=== PATIENT | female | born 1975 | race Caucasian/White ===

== ENCOUNTER 2023-08-27 16:34 | Emergency (ER) | payer SELFPAY ==
[2023-08-27 16:40] VITALS: BP 134/95; PULSE 92; RESP 20; TEMP 36.6; O2SAT 96; BMI 41.6
[2023-08-27 17:17] LABS: Influenza Virus A Antigen Negative; Influenza Virus B Antigen Negative; Internal Control Within Normal Limits; SARS-CoV-2 Ag NEGATIVE (NEGATIVE); Strep A Antigen Screen Negative
--- NOTE | 2023-08-27 17:35 | ED.URI1 ---
HPI - URI/Sore Throat General Chief Complaint: Upper Respiratory Infection Stated Complaint: Sore Throat Time Seen by Provider: 08/27/23 17:35 Limitations: no limitations History of Present Illness HPI Narrative: Patient is a 47-year-old female who presents to the emergency department to be checked for strep and COVID. 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 She was instructed to come to the emergency department to be evaluated. She has had no objective fevers, vomiting. She is not concerned for . No medications taken prior to arrival. Related Data Previous Rx's ?Medication ?Instructions ?Recorded ctsmkatbklfveju-kbxegogdciuiepq-TI 10 ml PO Q6H PRN cold symptoms 08/27/23 2 mg-30 mg-10 mg/5 mL oral syrup #200 mL (Bromfed DM) Allergies Allergy/AdvReac Type Severity Reaction Status Date / Time Penicillins Allergy Severe Anaphylaxis Verified 08/27/23 16:40 Review of Systems ROS Constitutional Denies: fever or chills Ears, nose, mouth, and throat Reports: throat pain and nasal congestion Respiratory Reports: cough; Denies: shortness of breath Gastrointestinal Denies: nausea or vomiting Musculoskeletal Denies: back pain Integumentary/Breast Denies: rash Neurological Denies: headache Hematologic/Lymphatic Denies: easy bruising or easy bleeding Exam Narrative Exam Narrative: Gen.: Awake, alert, in no distress Head: Normocephalic, atraumatic ENT: Moist mucous membranes, Bilateral TMs are clear, mild pharyngeal erythema noted with minimal tonsillar edema that is symmetric. No exudate. Airway widely open and patent with uvula midline. Clear speech. No trismus or drooling. Respiratory: No respiratory distress, lungs clear bilaterally Cardio: Regular rate and rhythm Extremities: Moves extremities equally Psych: Normal mood and affect Neuro: No focal neuro deficit Skin: Warm, dry, intact Constitutional Vital Signs, click to edit/add: Last Vital Signs Temp 98 F 08/27/23 16:40 Pulse 92 H 08/27/23 16:40 Resp 20 08/27/23 16:40 BP 134/95 H 08/27/23 16:40 Pulse Ox 96 08/27/23 16:40 O2 Del Method Room Air 08/27/23 16:40 Course Vital Signs Vital signs: Vital Signs Temperature 98 F 08/27/23 16:40 Pulse Rate 92 H 08/27/23 16:40 Respiratory Rate 20 08/27/23 16:40 Blood Pressure 134/95 H 08/27/23 16:40 Pulse Oximetry 96 08/27/23 16:40 Oxygen Delivery Method Room Air 08/27/23 16:40 Temperature 98 F 08/27/23 16:40 Pulse Rate 92 H 08/27/23 16:40 Respiratory Rate 20 08/27/23 16:40 Blood Pressure 134/95 H 08/27/23 16:40 Pulse Oximetry 96 08/27/23 16:40 Oxygen Delivery Method Room Air 08/27/23 16:40 MDM - URI/Sore Throat MDM Narrative Medical decision making narrative: Patient is negative for strep, flu, COVID. Decadron given in the ER and Bromfed-DM given for home. Follow-up with PCP, patient is safe for work if she does not have a temperature above 100.4 Fahrenheit. Medical Records Attestation: I reviewed the patient's medical records. Lab Data Attestation: I reviewed the patient's lab results. Labs: Lab Results 08/27/23 Range/Units 16:49 Influenza Type A Ag Negative Influenza Type B Ag Negative SARS-CoV-2 Ag (CV2AG) Negative (NEGATIVE) Streptococcus Screen Negative Discharge Plan Discharge Stand Alone Forms: Portal Instructions Chief Complaint: Upper Respiratory Infection Clinical Impression: Upper respiratory infection, Pharyngitis Patient Disposition: Home, Self-Care Time of Disposition Decision: 17:36 Condition: Good Prescriptions / Home Meds: New devrlnicagoudzm-agbgqthhb-CZ [Bromfed DM] 2-30-10 mg/5 mL syrup 10 ml PO Q6H PRN (Reason: cold symptoms) Qty: 200 0RF Print Language: Beninese Instructions: Pharyngitis (ED), Upper Respiratory Infection (ED) Referrals: Physician,Non-Staff, MD [Primary Care Provider] - 1 week
[2023-08-27] MEDS: DEXAMETHASONE SOD PHOS 10 MG/ML VIAL PO (17:46)
== END 2023-08-27 17:51 | disposition home or self-care (01) ==
PROVIDERS: Emergency Provider Emergency Medicine Emergency Medical Services
DX: J06.9 Acute upper respiratory infection, unspecified (principal); J02.9 Acute pharyngitis, unspecified; Z20.822 Contact with and (suspected) exposure to COVID-19
CPT/HCPCS: 87070; 87804; 87811; 87880; 99285; J1100